=== PATIENT | male | born 1985 | race Caucasian/White ===

== ENCOUNTER 2017-07-08 08:49 | Day surgery (SDC) | payer MEDICAID ==
[2017-06-30 11:49] LABS: BASOPHILS # (AUTO) 0.1 X10'3 (0-0.2); BASOPHILS % (AUTO) 1.1 % (0-1); EOSINOPHILS # (AUTO) 0.7 X10'3 (0-0.9); EOSINOPHILS % (AUTO) 7.2 % (0-6); LYMPHOCYTES # (AUTO) 1.7 X10'3 (1.1-4.8); LYMPHOCYTES % (AUTO) 18.3 % (21-51); MEAN CORPUSCULAR HEMOGLOBIN 29.5 PG (27.0-31.0); MEAN CORPUSCULAR HGB CONC 34.7 % (33.0-36.5); MEAN CORPUSCULAR VOLUME 85.1 FL (78-98); MEAN PLATELET VOLUME 7.2 FL (7.4-10.4); MONOCYTES # (AUTO) 0.4 X10'3 (0-0.9); MONOCYTES % (AUTO) 4.9 % (2-12); NEUTROPHILS # (AUTO) 6.2 X10'3 (1.8-7.7); NEUTROPHILS % (AUTO) 68.5 % (42-75); PRE OP HEMOGLOBIN 14.9 g/dL (14.0-17.9); PRE OP PLATELET COUNT 324 X10'3 (140-440); RED BLOOD COUNT 5.05 X10'6 (4.70-6.10); RED CELL DISTRIBUTION WIDTH 13.1 % (11.5-14.5)
[2017-06-30 12:04] LABS: ALBUMIN 3.4 G/DL (3.4-5.0); ALBUMIN/GLOBULIN RATIO 0.8 (1.1-1.5); ALKALINE PHOSPHATASE 125 IU/L (46-116); BLOOD UREA NITROGEN 11 MG/DL (7-18); BUN/CREATININE RATIO 10.7 (5.4-32.0); CHLORIDE 103 MMOL/L (99-107); CREATININE 1.03 MG/DL (0.60-1.10); PRE OP ALT 34 U/L (30-65); PRE OP ANION GAP 6 (8-16); PRE OP AST 20 U/L (10-37); PRE OP BILIRUB, TOTAL 0.3 MG/DL (0.0-1.0); PRE OP GLUCOSE 83 MG/DL (70-104); PRE OP POTASSIUM 4.1 MMOL/L (3.4-5.1); PRE OP SODIUM 139 MMOL/L (135-145); TOTAL CARBON DIOXIDE 30.5 MMOL/L (24-32); TOTAL PROTEIN 7.8 G/DL (6.4-8.2); eGFR 84 ML/MIN
[2017-07-08] VITALS (10 sets, daily range): BP systolic 121–144; BP diastolic 77–85
[~2017-07-08] VITALS: Ht 172.7 cm; Wt 89.8 kg
[~2017-07-08 08:49] MED LIST: ALBU18HF2 IH; ATOM40CA7 PO; CHOL10002 PO; Cefazolin 2GM/100ML NS IVPB IV ONE; ESCI20TA38 PO; FAMO20TA8 PO; LORA1TAB PO; TRAZ-143 PO; VANCOMYCIN INJ 1000 MG in NORMAL SALINE 250ml IV.SOLN IV ONE; famotidine 20mg tablet PO ONE; ringers solution, lacted 1,000 ML IV SCH
[2017-07-08] MEDS ORDERED: LIDOcaine 1% (10mg/ml) 2ml vial ONE (09:09)
[2017-07-08] MEDS ORDERED: LORazepam 0.5 MG tablet PO PRN (09:20)
[2017-07-08] MEDS ORDERED: propofol inj 20 ML IV ONE (10:02)
[2017-07-08] MEDS ORDERED: rocuronium 10mg/ml inj IV ONE (10:03)
[2017-07-08] MEDS ORDERED: ROPIVAcaine 0.5% (5mg/ml) 30ml vial ONE ×2 (10:14→13:23)
[2017-07-08] MEDS ORDERED: BUPIVAcaine/PF 2.5 mg/ml (0.25%) 30ml vial ONE ×2 (10:19→12:11)
[2017-07-08] MEDS ORDERED: phenylephrine 10mg/ml inj IV ONE (10:30)
[2017-07-08] MEDS ORDERED: midazolam 2 mg/2 ml injection ONE ×2 (11:27→11:36)
[2017-07-08] MEDS ORDERED: fentaNYL /PF 50mcg/ml 5ml ampule ONE (11:36)
[2017-07-08] MEDS ORDERED: ringers solution, lacted 1,000 ML IV SCH (12:02)
[2017-07-08] MEDS ORDERED: fentaNYL/PF 50MCG/1 ML 2ML syringe IV PRN ×4 (12:05)
[2017-07-08] MEDS ORDERED: meperidine/PF 25mg/ml syringe IV PRN ×2 (12:05)
[2017-07-08] MEDS ORDERED: HYDROmorphone inj. 0.5 MG/0.5 ML DISP.SYRIN IV PRN ×2 (12:05)
[2017-07-08] MEDS ORDERED: labetalol 20mg/4ml (5mg/ml) syringe IV PRN (12:05)
[2017-07-08] MEDS ORDERED: hydrALAZINE 20mg/ml inj. IV PRN (12:05)
[2017-07-08] MEDS ORDERED: ondansetron/PF 4mg/2ml inj IV PRN (12:05)
[2017-07-08] MEDS ORDERED: proCHLORperazine 10 MG/2 ml inj IV PRN (12:05)
[2017-07-08] MEDS ORDERED: ketorolac trometh. 30mg/ml inj. IV ONE (12:05)
[2017-07-08] MEDS ORDERED: ondansetron/PF 4mg/2ml inj ONE (12:14)
[2017-07-08] MEDS ORDERED: dexamethasone sod phosphate 4mg/ml inj. ONE (12:14)
[2017-07-08] MEDS ORDERED: BUPIVAcaine/PF 2.5 mg/ml (0.25%) 30ml vial IJ ONE (13:00)
[2017-07-08] MEDS ORDERED: fentaNYL/PF 50MCG/1 ML 2ML syringe ONE (13:03)
[2017-07-08] MEDS ORDERED: neostigmine methylsulfate 1 MG/ML 10ml vial ONE (13:34)
[2017-07-08] MEDS ORDERED: glycopyrrolate 0.2mg/ml inj ONE (13:34)
[2017-07-08] MEDS ORDERED: ketorolac trometh. 30mg/ml inj. ONE (13:53)
== END 2017-07-08 15:19 | disposition home or self-care (01) ==
LOC: PAS 08:49
PROVIDERS: ATTEND Orthopaedic Surgery
DX: M22.02 Recurrent dislocation of patella, left knee (principal); M94.262 Chondromalacia, left knee; M17.12 Unilateral primary osteoarthritis, left knee; J45.909 Unspecified asthma, uncomplicated; F41.9 Anxiety disorder, unspecified; F90.9 Attention-deficit hyperactivity disorder, unspecified type; K21.9 Gastro-esophageal reflux disease without esophagitis; F32.89 Other specified depressive episodes; M17.11 Unilateral primary osteoarthritis, right knee; E66.8 Other obesity; Z68.30 Body mass index [BMI] 30.0-30.9, adult; Z79.899 Other long term (current) drug therapy; Z88.8 Allergy status to other drugs, medicaments and biological substances
CPT/HCPCS: 27418; 29873; 29880; 36415; 80053; 85025; A6258; A6449; A6454; C1713; J0690; J1100; J1885; J2250; J2370; J2405; J2704; J2710; J2795; J3010; J3370; J3490; J7030; J7120; L1832; A6250; A7000

== ENCOUNTER 2018-09-08 13:00 | Day surgery (SDC) | payer MEDICAID ==
[2018-08-31 12:05] LABS: BASOPHILS % (AUTO) 0.4 % (0-1); EOSINOPHILS # (AUTO) 0.4 X10'3 (0-0.9); EOSINOPHILS % (AUTO) 3.9 % (0-6); LYMPHOCYTES # (AUTO) 2.2 X10'3 (1.1-4.8); LYMPHOCYTES % (AUTO) 22.5 % (21-51); MEAN CORPUSCULAR HEMOGLOBIN 31.3 PG (27.0-31.0); MEAN CORPUSCULAR HGB CONC 34.9 g/dL (33.0-36.5); MEAN CORPUSCULAR VOLUME 89.8 FL (78-98); MEAN PLATELET VOLUME 7.5 FL (7.4-10.4); MONOCYTES # (AUTO) 0.8 X10'3 (0-0.9); MONOCYTES % (AUTO) 8.1 % (2-12); NEUTROPHILS # (AUTO) 6.4 X10'3 (1.8-7.7); NEUTROPHILS % (AUTO) 65.1 % (42-75); PRE OP HEMATOCRIT 45.4 % (42.0-52.0); PRE OP HEMOGLOBIN 15.8 g/dL (14.0-17.9); PRE OP PLATELET COUNT 283 X10'3 (140-440); RED BLOOD COUNT 5.05 X10'6 (4.70-6.10); RED CELL DISTRIBUTION WIDTH 13.6 % (11.5-14.5)
[2018-08-31 12:17] LABS: PRE OP PROTIME 10.2 SECONDS (9.0-12.0)
[2018-08-31 12:20] LABS: ALBUMIN 3.6 G/DL (3.4-5.0); ALBUMIN/GLOBULIN RATIO 0.8 (1.1-1.5); ALKALINE PHOSPHATASE 104 IU/L (46-116); BLOOD UREA NITROGEN 12 MG/DL (7-18); BUN/CREATININE RATIO 12.9 (5.4-32.0); CHLORIDE 102 MMOL/L (99-107); CREATININE 0.93 MG/DL (0.60-1.10); PRE OP ALT 41 U/L (30-65); PRE OP ANION GAP 6 (8-16); PRE OP AST 22 U/L (10-37); PRE OP BILIRUB, TOTAL 0.4 MG/DL (0.0-1.0); PRE OP GLUCOSE 92 MG/DL (70-104); PRE OP POTASSIUM 4.4 MMOL/L (3.4-5.1); PRE OP SODIUM 137 MMOL/L (135-145); TOTAL CARBON DIOXIDE 29.2 MMOL/L (24-32); TOTAL PROTEIN 8.1 G/DL (6.4-8.2); eGFR > 90 ML/MIN
[~2018-09-08] VITALS: Ht 172.7 cm; Wt 100.2 kg
[~2018-09-08 13:00] MED LIST changes: +ATOM40CA PO; -ATOM40CA7 PO; -Cefazolin 2GM/100ML NS IVPB IV ONE; +DIVA-76 PO; -ESCI20TA38 PO; +LORA10TA65 PO; +MONT10TA21 PO; +OMEP40CA13 PO; -TRAZ-143 PO; +TRAZ-251 PO; +cefazolin/dext.iso 2gm/100 ML IV ONE
[2018-09-08] MEDS ORDERED: sevoflurane 250ml liquid IH ONE (14:20)
[2018-09-08] MEDS ORDERED: midazolam 2 mg/2 ml injection ONE (14:24)
[2018-09-08] MEDS ORDERED: fentaNYL/PF 50MCG/1 ML 2ML syringe ONE (14:24)
[2018-09-08] MEDS ORDERED: LIDOcaine 1%/PF 5ML 10 MG/ML VIAL ONE (14:25)
[2018-09-08] MEDS ORDERED: propofol inj 20 ML IV ONE (14:25)
[2018-09-08 14:30] VITALS: BP 132/83
[2018-09-08] MEDS ORDERED: dexamethasone sod phosphate 4mg/ml inj. ONE (14:32)
[2018-09-08] MEDS ORDERED: ondansetron/PF 4mg/2ml inj ONE (14:32)
[2018-09-08] MEDS ORDERED: BUPIVAcaine/PF 2.5 mg/ml (0.25%) 30ml vial ONE (14:41)
[2018-09-08] MEDS ORDERED: ringers solution, lacted 1,000 ML IV SCH (14:49)
[2018-09-08] MEDS ORDERED: fentaNYL/PF 50MCG/1 ML 2ML syringe IV PRN ×2 (14:50)
[2018-09-08] MEDS ORDERED: morphine 4 MG/ML inj SYRINge IV PRN ×2 (14:50)
[2018-09-08] MEDS ORDERED: ondansetron/PF 4mg/2ml inj IV PRN (14:50)
[2018-09-08] MEDS ORDERED: hydrALAZINE 20mg/ml inj. IV PRN (14:50)
[2018-09-08] MEDS ORDERED: labetalol 20mg/4ml (5mg/ml) syringe IV PRN (14:50)
[2018-09-08 14:59] VITALS: BP 126/70
--- NOTE | 2018-09-08 14:59 | NUR ---
Received from OR via nitesh, accompanied by Anesthesiologist Staci and report given by Anesthesiolgist. 20G to Left wrist, mask to 10L, VS stable, left lower extremity covered with gauze and coban. Good bilateral dorsalis pedis pulses. LR at 100cc/hr. Belongings at bedside.
[2018-09-08 15:09] VITALS: BP 122/77
[2018-09-08 15:19] VITALS: BP 124/87
[2018-09-08 15:29] VITALS: BP 135/80
--- NOTE | 2018-09-08 15:59 | NUR ---
Pt discharged to vehicle without incident, IV DC'd, gauze and coban to site remains CDI. Mother at bedside for DC instructions, both state understanding. Mother states pain medicine already received at home. Pt alert and oriented, dressed in his own clothing, all belongings given to patient.
== END 2018-09-08 16:00 | disposition home or self-care (01) ==
LOC: PAS 13:00 → UNDOADMIN 13:26 → PAS IN 13:26 → EDSTATUS 13:45 → UNDODISIN 15:59 → PAS 16:00
PROVIDERS: ATTEND Orthopaedic Surgery
DX: T84.84XA Pain due to internal orthopedic prosthetic devices, implants and grafts, initial encounter (principal); J45.909 Unspecified asthma, uncomplicated; K21.9 Gastro-esophageal reflux disease without esophagitis; F90.9 Attention-deficit hyperactivity disorder, unspecified type; F41.9 Anxiety disorder, unspecified; M17.0 Bilateral primary osteoarthritis of knee; E66.8 Other obesity; Z68.33 Body mass index [BMI] 33.0-33.9, adult; Z88.8 Allergy status to other drugs, medicaments and biological substances; Z98.890 Other specified postprocedural states; Y92.89 Other specified places as the place of occurrence of the external cause; Y83.8 Other surgical procedures as the cause of abnormal reaction of the patient, or of later complication, without mention of misadventure at the time of the procedure; Z79.01 Long term (current) use of anticoagulants; Z79.899 Other long term (current) drug therapy
CPT/HCPCS: 20680; 36415; 80053; 82948; 85025; 85610; 85730; J1100; J2250; J2405; J2704; J3010; J3370; J3490; J7120; A4215; A4618; A6250; A6449; A7000; G0378

== ENCOUNTER 2020-06-22 16:07 | Emergency (ER) | payer BC, MEDICAID ==
[~2020-06-22 16:07] MED LIST changes: -VANCOMYCIN INJ 1000 MG in NORMAL SALINE 250ml IV.SOLN IV ONE; -cefazolin/dext.iso 2gm/100 ML IV ONE; -famotidine 20mg tablet PO ONE; -ringers solution, lacted 1,000 ML IV SCH
[2020-06-22 16:19] VITALS: BP 129/88
[2020-06-22] MEDS ORDERED: LIDOcaine 1% W/epiNEPHrine 1:200,000 10ml vial IJ ONE (16:45)
[2020-06-22] MEDS ORDERED: TETanus/Pertussis (Acell)/Diphther VAC/PF (Tdap-Adult) 0.5ml syringe IMVAC ONE (16:45)
== END 2020-06-22 17:45 | disposition home or self-care (01) ==
LOC: ER 16:09
DX: S60.451A Superficial foreign body of left index finger, initial encounter (principal); Z88.8 Allergy status to other drugs, medicaments and biological substances; Z79.899 Other long term (current) drug therapy; W45.8XXA Other foreign body or object entering through skin, initial encounter; Y93.89 Activity, other specified; Y92.89 Other specified places as the place of occurrence of the external cause; Y99.8 Other external cause status
CPT/HCPCS: 64450; 90471; 90715; 99284